=== PATIENT | male | born 1990 | race African-American/Black ===

== ENCOUNTER 2016-09-26 11:16 | Emergency (ER) | payer OTHER, BC ==
[2016-09-26 11:23] VITALS: BP 105/75; PULSE 78; TEMP 98.5; BMI 23.6
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
== END 2016-09-26 13:40 | disposition home or self-care (01) ==
LOC: JERFT 11:16
PROC: 0HQ1XZZ Repair Face Skin, External Approach (ICD-10-PCS; principal; 2016-09-26)
DX: S01.111A Laceration without foreign body of right eyelid and periocular area, initial encounter (principal); S01.21XA Laceration without foreign body of nose, initial encounter; W25.XXXA Contact with sharp glass, initial encounter; Y93.H9 Activity, other involving exterior property and land maintenance, building and construction; Y92.414 Local residential or business street as the place of occurrence of the external cause; Y99.0 Civilian activity done for income or pay
CPT/HCPCS: 99282-25